=== PATIENT | male | born 1990 | race Caucasian/White ===

== ENCOUNTER 2022-03-09 13:06 | Emergency (ER) | payer SELFPAY ==
[~2022-03-09] VITALS: Ht 180 cm; Wt 77.0 kg
[2022-03-09 13:06] VITALS: BP 137/95
--- NOTE | 2022-03-09 13:15 | ED Psychosocial ---
General Chief Complaint: Psych/Social Disorder Stated Complaint: PSYCH Source: patient Exam Limitations: no limitations History of Present Illness Date Seen by Provider: March 09, 2022 Time Seen by Provider: 13:13 Initial Comments Patient is a 31-year-old male who presents ED by EMS for hallucinations. Patient states he has been having hallucinations for the past month. He states he sees these black figures that are wanting to shoot him. Patient states he has talked to other people about these black figures but no one believes him. No history of hallucinations in the past. History of anxiety and was placed on Zoloft but has not been taking his medication. Has been on Adderall in the past as well. Denies any drug use, alcohol use. No current suicidal thoughts. Denies headache, dizziness, visual changes, chest pain, shortness of breath, nausea, vomiting, diarrhea, headache, dizziness, visual changes, recent URI, neck pain, pain with urination, abdominal pain. Allergies and Home Medications Allergies Coded Allergies: amoxicillin (Verified Allergy, Unknown, 03/09/22) Patient Home Medication List Home Medication List Reviewed: Yes Review of Systems Constitutional: No chills, No diaphoresis, No malaise, No weakness EENTM: No blurred vision, No double vision, No mouth pain Respiratory: No cough, No dyspnea on exertion Cardiovascular: No chest pain Gastrointestinal: No abdominal pain, No diarrhea, No nausea, No vomiting Genitourinary: No decreased output, No discharge Musculoskeletal: No back pain, No joint pain Skin: No change in color, No change in hair/nails Physical Exam Vital Signs - First Documented 03/09/22 13:06 Temp 36.4 Pulse 120 Resp 20 B/P (MAP) 137/95 (109) Capillary Refill : Height, Weight, BMI Height: '" Weight: lbs. oz. kg; BMI Method: General Appearance: WD/WN, no apparent distress HEENT: PERRL/EOMI, normal ENT inspection, TMs normal, pharynx normal Neck: non-tender, full range of motion, supple, normal inspection Respiratory: chest non-tender, lungs clear, normal breath sounds, no respiratory distress, no accessory muscle use Cardiovascular: regular rate, rhythm, no edema, no gallop, no JVD Gastrointestinal: normal bowel sounds, non tender, soft, no organomegaly Extremities: normal range of motion, non-tender, normal inspection, no pedal edema, no calf tenderness Neurologic/Psychiatric: stiff neck loader II-XII nml as tested, no motor/sensory deficits, alert, normal mood/affect, oriented x 3 Appearance/Memory: neat Behavior/Eye Contact: avoids eye contact Thoughts/Hallucinations: visual hallucinations Skin: normal color, warm/dry Progress/Results/Core Measures Results/Orders My Orders Orders - AUNDREA BAILEY Ekg Tracing (03/09/22 13:11) General/Regular (03/09/22 Lunch) Ziprasidone Injection (Geodon Injection) (03/09/22 13:30) Water (Sterile) For Injection (Sterile W (03/09/22 13:30) Olanzapine Tablet (Zyprexa Tablet) (03/09/22 13:30) Sertraline Tablet (Zoloft Tablet) (03/09/22 14:00) Medications Given in ED Current Medications Medications Dose Ordered Sig/Nathan Route Start Time Stop Time Status Last Admin Dose Admin Olanzapine 10 mg ONCE ONCE PO 03/09/22 13:30 03/09/22 13:31 DC 03/09/22 13:55 5 MG Vital Signs/I&O 03/09/22 13:06 Temp 36.4 Pulse 120 Resp 20 B/P (MAP) 137/95 (109) Departure Communication (PCP) Patient with active hallucinations. Reports seeing black figures that are wan ting to kill him. Symptoms over the past month. Patient is redirectable. Difficulty giving any type of medication or getting lab work urine or EKG. Patient did receive 5 mg of Zyprexa. Patient was evaluated by [facility] who recommends inpatient. Patient currently involuntary. Patient would not sit in his room. Patient kept on wandering the kang. Had to set with patient for him to stay in his room. Patient is scared for a figure outside the room. He states this person or people or wanting to kill him. Attempted to redirect patient. When I left the room to see another patient patient took off running. PD was contacted and patient immediately returned back. Impression Primary Impression: Hallucinations Disposition: AGAINST MEDICAL ADVICE Condition: Unchanged Departure-Patient Inst. Decision time for Depature: 15:00 Patient Instructions: Schizophrenia AUNDREA BAILEY March 09, 2022 13:15
[2022-03-09] MEDS ORDERED: OLANZapine 2.5 MG (ZyPREXA) TAB PO ONE (13:30)
[2022-03-09] MEDS ORDERED: OLANZapine 5 MG (ZyPREXA) TAB PO ONE (13:30)
[2022-03-09] MEDS ORDERED: ZIPRASIDONE 20 MG INJ (GEODON) VIAL IM ONE (13:30)
[2022-03-09] MEDS ORDERED: WATER (STERILE) FOR INJ 10 ML BTL INJ SCH (13:30)
[2022-03-09] MEDS ORDERED: SERTRALINE 50 MG (ZOLOFT) TABLET PO ONE (14:00)
[2022-03-10] MEDS ORDERED: CEPH500T PO (14:57)
== END 2022-03-09 15:20 | disposition left against medical advice (07) ==
LOC: ER 13:08 → EDBD 13:08 → ER 15:20
DX: R44.1 Visual hallucinations (principal); F41.9 Anxiety disorder, unspecified; Z79.899 Other long term (current) drug therapy; Z91.14 Patient's other noncompliance with medication regimen
CPT/HCPCS: 93005; 99283

== ENCOUNTER 2022-03-09 15:55 | Emergency (ER) | payer SELFPAY ==
[~2022-03-09] VITALS: Ht 177 cm; Wt 77.0 kg
[2022-03-09 15:55] VITALS: BP 142/84
[2022-03-09 16:15] LABS: BASOPHILS % (AUTO) 1 % (0-10); EOSINOPHILS # (AUTO) 0.1 10^3/uL (0.0-0.3); EOSINOPHILS % (AUTO) 1 % (0-10); HEMATOCRIT 41 % (40-54); HEMOGLOBIN 13.9 g/dL (13.3-17.7); LYMPHOCYTES # (AUTO) 1.5 10^3/uL (1.0-4.0); LYMPHOCYTES % (AUTO) 29 % (12-44); MEAN CORPUSCULAR HEMOGLOBIN 29 pg (25-34); MEAN CORPUSCULAR HGB CONC 34 g/dL (32-36); MEAN CORPUSCULAR VOLUME 85 fL (80-99); MEAN PLATELET VOLUME 8.6 fL (9.0-12.2); MONOCYTES # (AUTO) 0.4 10^3/uL (0.0-1.0); MONOCYTES % (AUTO) 8 % (0-12); NEUTROPHILS # (AUTO) 3.1 10^3/uL (1.8-7.8); NEUTROPHILS % (AUTO) 61 % (42-75); PLATELET COUNT 451 10^3/uL (130-400); WHITE BLOOD COUNT 5.1 10^3/uL (4.3-11.0)
[2022-03-09] MEDS ORDERED: LORazepam INJ 2 MG/ML (ATIVAN) VIAL IVP ONE (16:15)
--- NOTE | 2022-03-09 16:21 | ED Psychosocial ---
General Chief Complaint: Psych/Social Disorder Stated Complaint: PSYCH Source: patient, police Exam Limitations: no limitations History of Present Illness Date Seen by Provider: March 09, 2022 Time Seen by Provider: 15:50 Initial Comments Patient presents ER by police custody with chief complaint of psychosis and fear that there are red faces that are trying to kill him everywhere. He does not feel safe. He was recently in the ER and eloped. He has been screened by the mental health screener and at that time it was determined he needed to go inpatient for psychiatric management involuntary status. Patient is not willing to go he says he does not feel safe here or anywhere. He does not have thoughts of suicidal or homicidal ideation. Police that he did not give him any trouble. Allergies and Home Medications Allergies Coded Allergies: amoxicillin (Verified Allergy, Unknown, 03/09/22) Patient Home Medication List Home Medication List Reviewed: Yes Review of Systems Constitutional: No chills, No diaphoresis EENTM: No ear discharge, No ear pain Respiratory: No cough, No short of breath Cardiovascular: No chest pain, No edema Gastrointestinal: No abdominal pain, No nausea Genitourinary: No discharge, No dysuria Musculoskeletal: No back pain, No joint pain All Other Systems Reviewed Negative Unless Noted: Yes Past Uaeonsq-Twuwny-Aybtry Hx Patient Social History Tobacco Use?: No Use of E-Cig and/or Vaping dev: No Substance use?: No Past Medical History Surgery/Hospitalization HX: ANXIETY Physical Exam Vital Signs - First Documented 03/09/22 15:55 Temp 36.3 Pulse 121 Resp 20 B/P (MAP) 142/84 (103) Pulse Ox 97 Capillary Refill : Height, Weight, BMI Height: '" Weight: lbs. oz. kg; 23.00 BMI Method: General Appearance: WD/WN, mild distress HEENT: PERRL/EOMI, pharynx normal Neck: supple, normal inspection Respiratory: lungs clear, normal breath sounds, no respiratory distress, no accessory muscle use Cardiovascular: normal peripheral pulses, regular rate, rhythm Peripheral Pulses: 2+ Radial Pulses (R), 2+ Radial Pulses (L) Gastrointestinal: normal bowel sounds, non tender, soft Neurologic/Psychiatric: no motor/sensory deficits, alert, oriented x 3, other (Paranoid, anxious affect) Behavior/Eye Contact: cooperative, avoids eye contact, increased rate of speech Thoughts/Hallucinations: No normal thought pattern, No auditory hallucinations; delusions, obsessive, paranoid, persecution, visual hallucinations Skin: normal color, warm/dry Progress/Results/Core Measures Results/Orders Lab Results Laboratory Tests Test 03/09/22 16:03 03/09/22 16:15 Range/Units White Blood Count 5.1 4.3-11.0 10^3/uL Red Blood Count 4.83 4.30-5.52 10^6/uL Hemoglobin 13.9 13.3-17.7 g/dL Hematocrit 41 40-54 % Mean Corpuscular Volume 85 80-99 fL Mean Corpuscular Hemoglobin 29 25-34 pg Mean Corpuscular Hemoglobin Concent 34 32-36 g/dL Red Cell Distribution Width 13.4 10.0-14.5 % Platelet Count 451 H 130-400 10^3/uL Mean Platelet Volume 8.6 L 9.0-12.2 fL Immature Granulocyte % (Auto) 0 % Neutrophils (%) (Auto) 61 42-75 % Lymphocytes (%) (Auto) 29 12-44 % Monocytes (%) (Auto) 8 0-12 % Eosinophils (%) (Auto) 1 0-10 % Basophils (%) (Auto) 1 0-10 % Neutrophils # (Auto) 3.1 1.8-7.8 10^3/uL Lymphocytes # (Auto) 1.5 1.0-4.0 10^3/uL Monocytes # (Auto) 0.4 0.0-1.0 10^3/uL Eosinophils # (Auto) 0.1 0.0-0.3 10^3/uL Basophils # (Auto) 0.0 0.0-0.1 10^3/uL Immature Granulocyte # (Auto) 0.0 0.0-0.1 10^3/uL Sodium Level 141 135-145 MMOL/L Potassium Level 3.6 3.6-5.0 MMOL/L Chloride Level 106 98-107 MMOL/L Carbon Dioxide Level 25 21-32 MMOL/L Anion Gap 10 5-14 MMOL/L Blood Urea Nitrogen 12 7-18 MG/DL Creatinine 1.00 0.60-1.30 MG/DL Estimat Glomerular Filtration Rate 103 BUN/Creatinine Ratio 12 Glucose Level 117 H 70-105 MG/DL Calcium Level 9.5 8.5-10.1 MG/DL Corrected Calcium 9.4 8.5-10.1 MG/DL Total Bilirubin 0.8 0.1-1.0 MG/DL Aspartate Amino Transf (AST/SGOT) 23 5-34 U/L Alanine Aminotransferase (ALT/SGPT) 28 0-55 U/L Alkaline Phosphatase 93 40-136 U/L Total Creatine Kinase 251 H 30-200 U/L Total Protein 7.5 6.4-8.2 GM/DL Albumin 4.1 3.2-4.5 GM/DL Salicylates Level < 5.0 L 5.0-20.0 MG/DL Acetaminophen Level < 10 L 10-30 UG/ML Serum Alcohol < 10 <10 MG/DL Urine Color DARK YELLOW Urine Clarity CLEAR Urine pH 6.0 5-9 Urine Specific [place] >=1.030 1.016-1.022 Urine Protein NEGATIVE NEGATIVE Urine Glucose (UA) NEGATIVE NEGATIVE Urine Ketones NEGATIVE NEGATIVE Urine Nitrite NEGATIVE NEGATIVE Urine Bilirubin NEGATIVE NEGATIVE Urine Urobilinogen 0.2 < = 1.0 MG/DL Urine Leukocyte Esterase 1+ H NEGATIVE Urine RBC (Auto) NEGATIVE NEGATIVE Urine RBC NONE /HPF Urine WBC 10-25 H /HPF Urine Crystals NONE /LPF Urine Bacteria TRACE /HPF Urine Casts NONE /LPF Urine Mucus MODERATE H /LPF Urine Culture Indicated YES Urine Opiates Screen NEGATIVE NEGATIVE Urine Oxycodone Screen NEGATIVE NEGATIVE Urine Methadone Screen NEGATIVE NEGATIVE Urine Propoxyphene Screen NEGATIVE NEGATIVE Urine Barbiturates Screen NEGATIVE NEGATIVE Ur Tricyclic Antidepressants Screen NEGATIVE NEGATIVE Urine Phencyclidine Screen NEGATIVE NEGATIVE Urine Amphetamines Screen POSITIVE H NEGATIVE Urine Methamphetamines Screen POSITIVE H NEGATIVE Urine Benzodiazepines Screen NEGATIVE NEGATIVE Urine Cocaine Screen NEGATIVE NEGATIVE Urine Cannabinoids Screen NEGATIVE NEGATIVE Micro Results Microbiology 03/09/22 Urine Culture - Final, Complete NO GROWTH My Orders Orders - TENISHA DAUGHERTY Ua Culture If Indicated (03/09/22 16:01) Cbc With Automated Diff (03/09/22 16:01) Comprehensive Metabolic Panel (03/09/22 16:01) Alcohol (03/09/22 16:01) Drug Screen Stat (Urine) (03/09/22 16:01) Acetaminophen (03/09/22 16:01) Salicylate (03/09/22 16:01) Ekg Tracing (03/09/22 16:01) Ed Iv/Invasive Line Start (03/09/22 16:01) Status Checks/Observation Q15M (03/09/22 16:01) Lorazepam Injection (Ativan Injection) (03/09/22 16:15) Creatine Kinase (03/09/22 16:01) Ziprasidone Injection (Geodon Injection) (03/09/22 16:30) Water (Sterile) For Injection (Sterile W (03/09/22 16:30) Urine Culture (03/09/22 16:15) Ceftriaxone (Rocephin) (03/09/22 18:00) Lidocaine 1% Inj 20 Ml (Xylocaine 1% Inj (03/09/22 18:00) Medications Given in ED Vital Signs/I&O Progress Progress Note #1: Time: 16:23 Progress Note Patient still quite paranoid, wandering and were worried about his delusions so to help him Ana to get him some IM Geodon. He only took half of the dose of Zyprexa from earlier and while it has helped him a little he is still animated and endorsing multiple delusions that there are people that he sees right in front of him in the hallway threatening him with a gun. He does not seem to test reality correctly and does not except when other providers and myself point out that there is no one else there and that he is safe. Progress Note #2: Time: 18:10 Progress Note Gram of Rocephin for his UTI. Methamphetamines positive in the urine drug screen. Progress Note #3: Time: 23:45 Progress Note Patient had a sitter but apparently managed to elope. Local PD were notified. Initial ECG Impression Date: March 09, 2022 Initial ECG Impression Time: 16:14 Initial ECG Rate: 101 Initial ECG Rhythm: S.Tach Initial ECG Intervals: Normal Initial ECG Impression: Normal, Nonspecific Changes Initial ECG Comparisson: No Previous ECG Available Comment Normal sinus tachycardia without dysrhythmia or ST changes. Transfer of Care Time: 18:30 Care transferred to: Dr Moreno Departure Impression Primary Impression: Psychosis Qualified Codes: F22 - Delusional disorders Additional Impressions: Delusion of persecution UTI (urinary tract infection) Qualified Codes: N30.00 - Acute cystitis without hematuria Methamphetamine addiction Disposition: 07 AGAINST MEDICAL ADVICE Condition: Against Medical Advice Transfer Transfer Reason: Exceeds level of care (no inpt Psych) Transfer Progress Notes Mental health screener visited with the patient and determined that he needs inpatient placement involuntary status. She is working on also want nm placement. She will call us back when she has an update Transfer Facility: [place], [place] Departure-Patient Inst. Decision time for Depature: 23:45 Referrals: [facility],LOCAL PHYSICIAN (PCP) Primary Care Physician Patient Instructions: ALCOHOL AND SUBSTANCE ABUSE, Urinary Tract Infection, Adult ED Add. Discharge Instructions: Drink plenty of fluids. Keflex 1 capsule twice a day for the urinary tract infection. Return to the ER for significant worsening symptoms. If you want help getting off of the use of methamphetamines then I recommend you follow-up with psychiatric hospital addiction treatment program. If you are looking for an inpatient program then you can try [facility] addiction treatment center at [phone]. If you are having self-destructive thoughts of self-harm, suicide, wanting to harm other people then call [facility] or [facility] at [phone]. All discharge instructions reviewed with patient and/or family. Voiced understanding. Scripts Cephalexin (Cephalexin) 500 Mg Tablet 500 MG PO BID for 7 Days, #14 TAB 0 Refills Prov: TENISHA DAUGHERTY 03/10/22 TENISHA DAUGHERTY March 09, 2022 16:21
[2022-03-09 16:28] LABS: BILIRUBIN,URINE NEGATIVE (NEGATIVE); CLARITY,URINE CLEAR; COLOR,URINE DARK YELLOW; GLUCOSE, URINE (UA) NEGATIVE (NEGATIVE); KETONES,URINE NEGATIVE (NEGATIVE); LEUKOCYTE ESTERASE ,URINE 1+ (NEGATIVE); NITRITE,URINE NEGATIVE (NEGATIVE); PROTEIN,URINE NEGATIVE (NEGATIVE)
[2022-03-09 16:29] LABS: CHLORIDE 106 MMOL/L (98-107); POTASSIUM 3.6 MMOL/L (3.6-5.0); SODIUM 141 MMOL/L (135-145)
[2022-03-09 16:30] LABS: ALBUMIN 4.1 GM/DL (3.2-4.5)
[2022-03-09] MEDS ORDERED: WATER (STERILE) FOR INJ 10 ML BTL INJ SCH (16:30)
[2022-03-09] MEDS ORDERED: ZIPRASIDONE 20 MG INJ (GEODON) VIAL IM ONE (16:30)
[2022-03-09 16:31] LABS: CALCIUM 9.5 MG/DL (8.5-10.1)
[2022-03-09 16:32] LABS: GLUCOSE 117 MG/DL (70-105)
[2022-03-09 16:33] LABS: TOTAL PROTEIN 7.5 GM/DL (6.4-8.2)
[2022-03-09 16:34] LABS: BILIRUBIN,TOTAL 0.8 MG/DL (0.1-1.0); CARBON DIOXIDE 25 MMOL/L (21-32)
[2022-03-09 16:36] LABS: ALKALINE PHOSPHATASE 93 U/L (40-136); GFR ESTIMATED 103
[2022-03-09 16:38] LABS: BUN/CREATININE RATIO 12
[2022-03-09 16:39] LABS: ALANINE AMINOTRANSFERASE 28 U/L (0-55); CREATINE KINASE 251 U/L (30-200); SALICYLATE < 5.0 MG/DL (5.0-20.0)
[2022-03-09 16:42] LABS: BACTERIA,URINE TRACE /HPF
[2022-03-09 16:44] LABS: ACETAMINOPHEN < 10 UG/ML (10-30)
[2022-03-09 16:48] LABS: AMPHETAMINE SCREEN, URINE POSITIVE (NEGATIVE); BARBITURATE SCREEN URINE NEGATIVE (NEGATIVE); BENZODIAZEPINES SCREEN URINE NEGATIVE (NEGATIVE); CANNABINOID SCREEN, URINE NEGATIVE (NEGATIVE); COCAINE SCREEN URINE NEGATIVE (NEGATIVE); METHADONE STAT NEGATIVE (NEGATIVE); OPIATE SCREEN URINE NEGATIVE (NEGATIVE); OXYCODONE STAT NEGATIVE (NEGATIVE); PROPOXYPHENE STAT NEGATIVE (NEGATIVE); TRICYCLIC ANTIDEPRESSANTS SCRE NEGATIVE (NEGATIVE)
[2022-03-09] MEDS ORDERED: LIDOCAINE 1% INJ 20 ML VIAL INJ ONE (18:00)
[2022-03-09] MEDS ORDERED: cefTRIAXone 1,000 MG VIAL IM ONE (18:00)
[2022-03-10] MEDS ORDERED: CEPH500T PO (14:57)
== END 2022-03-09 21:52 | disposition left against medical advice (07) ==
LOC: EDUNIT# 15:56 → ER 16:00
DX: F22 Delusional disorders (principal); N30.00 Acute cystitis without hematuria; F15.20 Other stimulant dependence, uncomplicated
CPT/HCPCS: 80053; 80306; 81000; 82550; 85025; 87088; 99283; G0480 ×3; 36415; 80320; 80329

== ENCOUNTER 2022-03-13 01:37 | Emergency (ER) | payer SELFPAY ==
[~2022-03-13] VITALS: Ht 180 cm; Wt 77.1 kg
[~2022-03-13 01:37] MED LIST: CEPH500T PO
[2022-03-13] MEDS ORDERED: LORazepam 0.5 MG (ATIVAN) TABLET PO STA (01:59)
--- NOTE | 2022-03-13 02:01 | ED Psychosocial ---
General Chief Complaint: Psych/Social Disorder Stated Complaint: PARANOIA Nursing Triage Note: Patient arrives per EMS, ambulating in from ambulance bay. Pt restless and fidgety ambulating about room after obtaining VS. Source: patient Exam Limitations: intoxication History of Present Illness Date Seen by Provider: March 13, 2022 Time Seen by Provider: 01:51 Initial Comments Patient is a 31-year-old male who presents to the emergency department today with a chief complaint of anxiety and panic. Patient is very agitated, walking around the room, states that he does not want to be left alone. He states his girlfriend called the ambulance because he was very anxious. He perseverates on the fact that he spent 15 years in a long term and that it caused him severe anxiety. He does admit to methamphetamine use this evening. He states that his girlfriend thought that he was hallucinating. He actually denies hallucinations at this time. He denies homicidal or suicidal ideation. He states he is not on any medications for mental health but he does have an appointment in March with [facility]. He denies any recent illnesses, fevers, chills. Initially denied any medications for his anxiety but then was agreeable to oral medication. Apparently he did fall at some point this evening scraping of his knees and request that these be cleaned up. He was offered a tetanus vaccination but he declined. He is very restless, fidgety and jerky in the room. All other review of systems reviewed and negative except as stated. Timing/Duration: this evening Severity: severe Associated Symptoms: anxiety, impaired concentration Allergies and Home Medications Allergies Coded Allergies: amoxicillin (Verified Allergy, Unknown, 03/09/22) Patient Home Medication List Home Medication List Reviewed: Yes Cephalexin (Cephalexin) 500 Mg Tablet, 500 MG PO BID Prescribed by: TENISHA DAUGHERTY on 03/10/22 0503 Review of Systems Constitutional: see HPI EENTM: no symptoms reported Respiratory: no symptoms reported Cardiovascular: no symptoms reported Gastrointestinal: no symptoms reported Genitourinary: no symptoms reported Musculoskeletal: no symptoms reported Skin: other (abrasions) Psychiatric/Neurological: Anxiety All Other Systems Reviewed Negative Unless Noted: Yes Past Wvaqdbg-Azivfi-Zecxex Hx Past Medical History Surgery/Hospitalization HX: ANXIETY Physical Exam Vital Signs - First Documented 03/13/22 01:40 Temp 36.0 Pulse 124 Resp 22 B/P (MAP) 147/80 (102) Pulse Ox 97 O2 Delivery Room Air Capillary Refill : Height, Weight, BMI Height: '" Weight: lbs. oz. kg; 23.00 BMI Method: General Appearance: WD/WN, moderate distress HEENT: PERRL/EOMI Neck: normal inspection Respiratory: no respiratory distress, no accessory muscle use Extremities: normal range of motion, normal inspection Neurologic/Psychiatric: alert, other (anxious, pressured speech; fidgety and jerky movements) Appearance/Memory: disheveled, impaired insight Behavior/Eye Contact: increased rate of speech Thoughts/Hallucinations: no apparent hallucination, paranoid Skin: normal color, other (abrasions - superficial bilateral knees; no active bleeding) Progress/Results/Core Measures Results/Orders My Orders Orders - LEELEE BELL MD Lorazepam Tablet (Ativan Tablet) (03/13/22 01:59) Lorazepam Tablet (Ativan Tablet) (03/13/22 02:02) Vital Signs/I&O 03/13/22 01:40 Temp 36.0 Pulse 124 Resp 22 B/P (MAP) 147/80 (102) Pulse Ox 97 O2 Delivery Room Air Blood Pressure Mean: 102 Departure Impression Primary Impression: Anxiety Additional Impressions: Methamphetamine use Abrasion of knee, bilateral Disposition: 01 HOME, SELF-CARE Condition: Stable Departure-Patient Inst. Decision time for Depature: 02:17 Referrals: [facility] [address],LOCAL PHYSICIAN (PCP) Primary Care Physician Patient Instructions: ALCOHOL AND SUBSTANCE ABUSE, Panic Disorder (DC) Add. Discharge Instructions: Keep the abrasions on your knees clean and dry. You should stop using methamphetamine. This will worsen your anxiety. Call [facility] or [facility] for a follow-up appointment or sooner appointment for your mental health needs Return to the emergency department for any new, concerning or emergent complaints. LEELEE BELL MD March 13, 2022 02:01
[2022-03-13] MEDS ORDERED: LORazepam 0.5 MG (ATIVAN) TABLET ONE (02:02)
[2022-03-13 02:24] VITALS: BP 147/80
== END 2022-03-13 02:24 | disposition home or self-care (01) ==
LOC: EDUNIT# 01:37 → ER 01:38
DX: S80.211A Abrasion, right knee, initial encounter (principal); S80.212A Abrasion, left knee, initial encounter; F41.0 Panic disorder [episodic paroxysmal anxiety]; F15.90 Other stimulant use, unspecified, uncomplicated; W19.XXXA Unspecified fall, initial encounter
CPT/HCPCS: 99283

== ENCOUNTER 2022-03-14 04:19 | Emergency (ER) | payer SELFPAY ==
[2022-03-14] MEDS ORDERED: PROPOFOL DRIP (ICU) 100 ML IV ONE ×2 (04:26→06:02)
[2022-03-14] MEDS ORDERED: morphine INJ 10 MG/ML 1ML (SYR OR VIAL) IVP STA (04:35)
[2022-03-14] MEDS ORDERED: TETANUS,DIPTH,PERTUSS P/F (BOOSTRIX) 0.5 ML VIAL IM ONE ×2 (04:37→04:45)
[2022-03-14] MEDS ORDERED: morphine INJ 10 MG/ML 1ML (SYR OR VIAL) ONE (04:38)
[2022-03-14] MEDS ORDERED: LACTATED RINGERS 1,000 ML IV ONE ×3 (04:45→06:01)
[2022-03-14] MEDS ORDERED: RT-ALBUTEROL/IPRATROPIUM 3 ML (DUONEB) VIAL ONE (04:52)
[2022-03-14] MEDS ORDERED: RT-ALBUTEROL/IPRATROPIUM 3 ML (DUONEB) VIAL INH ONE (05:00)
[2022-03-14 05:06] LABS: BASOPHILS % (AUTO) 0 % (0-10); EOSINOPHILS % (AUTO) 0 % (0-10); HEMATOCRIT 36 % (40-54); HEMOGLOBIN 12.1 g/dL (13.3-17.7); LYMPHOCYTES # (AUTO) 0.6 10^3/uL (1.0-4.0); LYMPHOCYTES % (AUTO) 8 % (12-44); MEAN CORPUSCULAR HEMOGLOBIN 29 pg (25-34); MEAN CORPUSCULAR HGB CONC 34 g/dL (32-36); MEAN CORPUSCULAR VOLUME 85 fL (80-99); MEAN PLATELET VOLUME 8.8 fL (9.0-12.2); MONOCYTES # (AUTO) 0.5 10^3/uL (0.0-1.0); MONOCYTES % (AUTO) 5 % (0-12); NEUTROPHILS # (AUTO) 7.3 10^3/uL (1.8-7.8); NEUTROPHILS % (AUTO) 87 % (42-75); PLATELET COUNT 317 10^3/uL (130-400); WHITE BLOOD COUNT 8.5 10^3/uL (4.3-11.0)
[2022-03-14 05:08] LABS: ALBUMIN 3.6 GM/DL (3.2-4.5); CHLORIDE 109 MMOL/L (98-107); POTASSIUM 3.8 MMOL/L (3.6-5.0); SODIUM 142 MMOL/L (135-145)
[2022-03-14 05:09] LABS: CALCIUM 8.4 MG/DL (8.5-10.1)
[2022-03-14 05:10] LABS: BILIRUBIN,URINE NEGATIVE (NEGATIVE); CLARITY,URINE SL CLOUDY; COLOR,URINE YELLOW; GLUCOSE, URINE (UA) NEGATIVE (NEGATIVE); KETONES,URINE TRACE (NEGATIVE); LEUKOCYTE ESTERASE ,URINE TRACE (NEGATIVE); NITRITE,URINE NEGATIVE (NEGATIVE); PH,URINE 5.5 (5-9); PROTEIN,URINE NEGATIVE (NEGATIVE)
[2022-03-14 05:10] LABS: GLUCOSE 115 MG/DL (70-105); TOTAL PROTEIN 6.3 GM/DL (6.4-8.2)
[2022-03-14 05:11] LABS: CARBON DIOXIDE 17 MMOL/L (21-32); INR 1.2 (0.8-1.4); PROTHROMBIN TIME PATIENT 15.1 SEC (12.2-14.7)
[2022-03-14 05:12] LABS: BILIRUBIN,TOTAL 1.6 MG/DL (0.1-1.0)
[2022-03-14 05:14] LABS: ALKALINE PHOSPHATASE 81 U/L (40-136); CREATININE SERUM 1.54 MG/DL (0.60-1.30); GFR ESTIMATED 61
[2022-03-14 05:15] LABS: BUN/CREATININE RATIO 16
[2022-03-14 05:17] LABS: ALANINE AMINOTRANSFERASE 109 U/L (0-55); CREATINE KINASE 1651 U/L (30-200); MAGNESIUM 1.7 MG/DL (1.6-2.4)
[2022-03-14 05:23] LABS: AMPHETAMINE SCREEN, URINE NEGATIVE (NEGATIVE); BACTERIA,URINE TRACE /HPF; BARBITURATE SCREEN URINE NEGATIVE (NEGATIVE); BENZODIAZEPINES SCREEN URINE NEGATIVE (NEGATIVE); CANNABINOID SCREEN, URINE NEGATIVE (NEGATIVE); COCAINE SCREEN URINE NEGATIVE (NEGATIVE); METHADONE STAT NEGATIVE (NEGATIVE); OPIATE SCREEN URINE POSITIVE (NEGATIVE); OXYCODONE STAT NEGATIVE (NEGATIVE); PROPOXYPHENE STAT NEGATIVE (NEGATIVE); RBC,URINE 0-2 /HPF; SQUAMOUS EPITHELIAL CELL,UR 0-2 /HPF; TRICYCLIC ANTIDEPRESSANTS SCRE NEGATIVE (NEGATIVE)
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
[2022-03-14 05:25] LABS: CREATINE KINASE MB 12.2 NG/ML (<6.6)
[2022-03-14 05:37] LABS: NEUTROPHILS % (MANUAL) 88 %
[2022-03-14 05:38] LABS: LYMPHOCYTES % (MANUAL) 7 %; MONOCYTES % (MANUAL) 5 %; RBC MORPH NORMAL
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
--- NOTE | 2022-03-14 06:04 | Diagnostic Imaging Report ---
INDICATION: Intubated patient. Respiratory failure. COMPARISON: None FINDINGS: Single frontal radiographic view of the chest was obtained and demonstrates indwelling endotracheal tube with tip at the clavicular heads. Indwelling gastric tube is also noted and extends inferiorly beyond the field of view. Side port, however, likely terminates within the stomach. Cardiac silhouette and pulmonary vasculature are within normal limits. Lungs show low inspiratory volumes, but are otherwise clear. There is no large effusion or pneumothorax. Osseous structures show no gross acute abnormalities. IMPRESSION: 1. No lung volumes, but no evidence of failure or focal infiltrate. 2. Lines and tubes as above. Dictated by: Dictated on workstation # [id number]
[2022-03-14 06:15] VITALS: BP 114/68
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
== END 2022-03-14 06:15 | disposition short-term general hospital (02) ==
LOC: EDUNIT# 04:19 → ER 04:20
DX: T20.24XA Burn of second degree of nose (septum), initial encounter (principal); T20.23XA Burn of second degree of chin, initial encounter; T21.22XA Burn of second degree of abdominal wall, initial encounter; T21.23XA Burn of second degree of upper back, initial encounter; T22.251A Burn of second degree of right shoulder, initial encounter; T23.201A Burn of second degree of right hand, unspecified site, initial encounter; T22.252A Burn of second degree of left shoulder, initial encounter; T28.0XXA Burn of mouth and pharynx, initial encounter; T59.91XA Toxic effect of unspecified gases, fumes and vapors, accidental (unintentional), initial encounter; N17.9 Acute kidney failure, unspecified; R74.8 Abnormal levels of other serum enzymes; R94.5 Abnormal results of liver function studies; R79.89 Other specified abnormal findings of blood chemistry; F19.10 Other psychoactive substance abuse, uncomplicated; Z23 Encounter for immunization; Z20.822 Contact with and (suspected) exposure to COVID-19; Z99.11 Dependence on respirator [ventilator] status; X00.0XXA Exposure to flames in uncontrolled fire in building or structure, initial encounter; Y92.009 Unspecified place in unspecified non-institutional (private) residence as the place of occurrence of the external cause
CPT/HCPCS: 51702; 71045; 72170; 80053; 80306; 81000; 82375; 82550; 82553; 83735; 83874; 85007; 85027; 85610; 85730; 87636; 93041; 94640; 94799; 99291; 99292; G0390; G0480; 36415; 80320; 90715